=== PATIENT | female | born 1945 | race Caucasian/White ===

== ENCOUNTER 2023-08-14 15:36 | Emergency (ER) | payer MEDICARE, SELFPAY ==
[2023-08-14 16:02] VITALS: BP 160/81; PULSE 78; RESP 18; TEMP 36.7; O2SAT 100
--- NOTE | 2023-08-14 16:37 | ED.URI ---
HPI - URI/Sore Throat General Chief Complaint: Upper Respiratory Infection Stated Complaint: head congestion/cough Time Seen by Provider: 08/14/23 16:37 Source: patient and RN notes reviewed Mode of arrival: ambulatory Limitations: no limitations History of Present Illness HPI Narrative: 77-year-old female presented for complaint of sinus congestion, cough and chills. Onset 3 days. She took Mucinex and other ocfx-bdb-prhxxdu medication without significant improvement. She denies shortness of breath, wheezing, nausea, vomiting, diarrhea fever chills. MD elicited complaint: cough Related Data Home Medications Medication Instructions Recorded Confirmed sumatriptan succinate 100 mg tablet 100 mg PO PRN PRN migraines 08/14/23 08/14/23 Allergies Allergy/AdvReac Type Severity Reaction Status Date / Time No Known Allergies Allergy Verified 08/14/23 16:01 Review of Systems Review of Systems: Per HPI Exam Narrative: GENERAL: mildly ill-appearing, nontoxic no acute distress. EYES: PERRLA, conjunctivae clear ENT: Mucous membranes moist. TMs pearly cole with dull light reflex bilaterally; no tragal tenderness. Oropharynx erythematous without lesions or exudate, no drooling, no hoarseness, no trismus, uvula midline. NECK: Supple. No lymphadenopathy CHEST: Clear to auscultation, breath sounds equal. No wheezing, rhonchi, rales, or stridor. No respiratory distress, speaks in full sentences. HEART: Regular rate and rhythm. No murmur heard. SKIN: Warm, dry, no rash. NEURO: Alert and oriented x3. PSYCH: Normal mood and affect Course Course Emergency Course: Patient is aware of diagnosis, understands and agrees to treatment plan. Anticipatory guidance given. Patient agrees to follow-up as directed and is aware of reasons to seek care at the emergency department. Portions of this record may have been created with voice recognition software Level of Care: Express Care Visit Vital Signs Vital signs: Vital Signs Temperature 98.1 F 08/14/23 16:02 Pulse Rate 78 08/14/23 16:02 Respiratory Rate 18 08/14/23 16:02 Blood Pressure 160/81 H 08/14/23 16:02 Pulse Oximetry 100 08/14/23 16:02 Oxygen Delivery Room Air 08/14/23 16:02 Temperature 98.1 F 08/14/23 16:02 Pulse Rate 78 08/14/23 16:02 Respiratory Rate 18 08/14/23 16:02 Blood Pressure 160/81 H 08/14/23 16:02 Pulse Oximetry 100 08/14/23 16:02 Oxygen Delivery Room Air 08/14/23 16:02 reviewed MDM - URI/Sore Throat MDM Narrative Medical decision making narrative: negative flu and COVID. Results reviewed with patient. URI Symptoms present x3 days. Discussed physical exam findings. Advised supportive measures and signs/symptoms to go to the ER. Pt is appropriate for outpt treatment and f/u. Differential Diagnosis Differential diagnosis: Likely upper respiratory infection, sinusitis, viral infection and influenza Lab Data Labs: Influenza A Screen Negative Reference Range: Negative Influenza B Screen Negative Reference Range: Negative Discharge Plan Discharge Clinical Impression: Upper respiratory infection Patient Disposition: Home, Self-Care Condition: Stable Instructions: Antibiotic Form, Upper Respiratory Infection (ED) Additional Instructions: Your blood pressure reading was elevated (above 120/80) please follow-up with your primary care provider for further evaluation and management. If you develop worsening Blood Pressure symptoms, (headache, vision changes, dizziness, vomiting, chest pain, etc) go to the ER. Call 911. Flu and COVID negative. Recommend Flonase spray and Zyrtec (or Claritin/Flor) over the counter Cough syrup may cause drowsiness; avoid driving or take it at night time. Recommend Coricidin HBP if you have hypertension Tylenol 1000mg every 8
== END 2023-08-14 16:44 | disposition home or self-care (01) ==
PROVIDERS: Emergency Provider Nurse Practitioner Family
DX: J06.9 Acute upper respiratory infection, unspecified (principal); Z20.822 Contact with and (suspected) exposure to COVID-19
CPT/HCPCS: 87426; 87804; 99213; G0463

== ENCOUNTER 2024-12-22 19:09 | Emergency (ER) | payer MEDICARE, SELFPAY ==
--- OUTSIDE RECORDS SUMMARY | 2024-12-22 19:12 | XMS_ITS | Referral Summary ---
Author Organization [address] Address [address] [place] [address] Care Team Providers Care Supervisor Polishing Name Role Phone Gallito Santana MD Primary Care Provider [phone] Allergies No known active allergies Medications SUMAtriptan (IMITREX) 100 mg tabletIndicatio ns:Migraine Take 100 mg by mouth once as needed for migraine Active Active Problems Problem Noted Date Diagnosed Date Urinary tract infection 02/01/2009 Overview (09/11/2017): Description: Recurrent - Onset 06/09 - present Dysuria 02/01/2009 Social History Tobacco Use Types Packs/Day Years Used Date Smoking Tobacco: Former Comments Unknown Sex and Gender Information Value Date Recorded Sex Assigned at Not on file 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 Gender Identity Not on file Sexual Orientation Not on file Last Filed Vital Signs Vital Sign Reading Time Taken Comments Blood Pressure 122/80 01/14/2021 4:04 PM CDT Pulse 83 01/14/2021 4:04 PM CDT Temperature 37.3 C (99.1 F) 01/14/2021 4:04 PM CDT Respiratory Rate 18 01/14/2021 4:04 PM CDT Oxygen Saturation 98% 01/14/2021 4:04 PM CDT Inhaled Oxygen Concentration - - Weight 68.5 kg (151 lb) 01/14/2021 4:04 PM CDT Height 160 cm (5' 3) 01/14/2021 4:04 PM CDT Body Mass Index 26.75 01/14/2021 4:04 PM CDT Plan of Treatment Not on file Insurance AET MEDICARE AETNA MEDICARE GOLD Care Teams Supervisor Polishing Relationship Specialty Start Date End Date Gallito Santana MD PCP - General Internal Medicine 01/14/21
--- OUTSIDE RECORDS SUMMARY | 2024-12-22 19:12 | XMS_ITS | Clinical Summary ---
Author Organization [facility] Address [address] [place] [address] Care Team Providers Care Oxygen Furnace Operator Name Role Phone Wesley Dawkins Primary Care Provider Unavailabl e Source Comments [facility],non-owned Affiliates and Associated Physician Practices is amultiple site organization consisting of ambulatory clinics and hospital sitesin [place] and [place]. This disclosure is being madepursuant to the Care Everywhere program and may not contain all information available regarding this patient. Last updated 18.[facility] Allergies No known active allergies Medications * Be aware that medications may not be up to date on this document. Alwaysverify current medications with the patient. ibuprofen (MOTRIN) 800 MG tablet Take 1 Tab by mouth 3 times daily as needed for Pain. 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 Gender Identity Not on file Sexual Orientation Not on file Last Filed Vital Signs Vital Sign Reading Time Taken Comments Blood Pressure 154/78 04/01/2013 4:03 PM CDT Pulse 78 04/01/2013 4:03 PM CDT Temperature 36.8 C (98.2 F) 04/01/2013 1:24 PM CDT Respiratory Rate 18 04/01/2013 4:03 PM CDT Oxygen Saturation 98% 04/01/2013 4:03 PM CDT Inhaled Oxygen Concentration - - Weight 74.8 kg (165 lb) 04/01/2013 1:24 PM CDT Height 162.6 cm (5' 4) 04/01/2013 1:24 PM CDT Body Mass Index 28.32 04/01/2013 1:24 PM CDT Plan of Treatment Health Maintenance Due Date Last Done Comments BONE DENSITY TESTING 1945 HEPATITIS C SCREENING 12/06/1965 DTAP/TDAP/TD VACCINES (1 - Tdap) 12/10/1966 PNEUMOCOCCAL VACCINE 50+ (1 of 1 - PCV) 12/10/1997 ZOSTER VACCINE (1 of 2) 12/10/1997 Respiratory Syncytial Virus (RSV) Vaccine Pt: or over 60 yrs (1 - 1-dose 75+ series) 12/10/2022 COVID-19 VACCINE ( - 2023-2 5 season) 2024 DEPRESSION SCREENING 06/01/2024 INFLUENZA VACCINE (#1) 2025 HEPATITIS B VACCINE Aged Out No longe r eligible based on patient's age to complete this topic HIB VACCINE Aged Out No longer eligi ble based on patient's age to complete this topic HPV VACCINE Aged Out No longer eligi ble based on patient's age to complete this topic MENINGOCOCCAL (Group B) VACC INE SHARED DECISION-MAKING Aged Out No longer eligibl e based on patient's age to complete this topic MENINGOCOCCAL GROUPS A/C/Y/W VACCINE Aged Out No longer eligible b ased on patient's age to complete this topic Insurance [facility] COMMERCIAL GENERIC COMMERCIAL GENERIC [employer] Member Subscriber Plan / Payer (Ef fective for All Dates) Name:Selin Carlson Britney Relation to Subscriber:Self Name:Selin Carlson Britney Payer ID:Not on file Group ID:Not on file Type:Third [employer] [id number] Address: [address] [address] [place] [address] [employer] Care Teams Oxygen Furnace Operator Relationship Specialty Start Date End Date Wesley Dawkins PCP - General Internal Medicine 04/01/13
--- OUTSIDE RECORDS SUMMARY | 2024-12-22 19:12 | XMS_ITS | Continuity of Care Document ---
Author Organization [facility] Address [address] [place] [address] Phone Care Team Providers Care Vamp Seamer Name Role Phone Ronit Farmer MD Unavailable Unavailable Allergies, Adverse Reactions, Alerts Substance Reaction Status Criticality No Known allergies Medications Medication Instructions Dosage Effective Dates (start - stop) Status Comments IMITREX (unknown strength) Not Available - Active Procedures Procedure Date POSTOP FOLLOW-UP VISIT POSTOP FOLLOW-UP VISIT POSTOP FOLLOW-UP VISIT [facility] Advance Directives Directive Yes / No Effective Date File Name Resuscitation Not Answered N/A N/A Life Support Not Answered N/A N/A Intubation Not Answered N/A N/A Antibiotics Not Answered N/A N/A IV Fluid Support Not Answered N/A N/A Tube Feed Not Answered N/A N/A Other Directive N/A N/A WARNING:The information contained in this section is historical and is provided for information only and does not constitute a legal document or any assurance that the information is still accurate. Please verify the information with the ron of the legal document before using it for clinical purposes. Encounters Encounter Description Practice Location Reason(s) For Visit Diagnoses Date Provider Providers Copied on Encounter [facility], [address], [place], [address], [phone] [facility] Trigger fingerCarpal Tunnel Syndrome 4 Marleny Cottrell. [address] [place], [place], [id number] . tel: [phone] [facility], [address] [address], [place], [address], [place] tel:[phone] [facility] Carpal Tunnel SyndromeTrigger finger 3 Marleny Ronit. [address], [place], [place], [id number] . tel: [phone] [facility], [address] [address], [place], [address], [place] tel:[phone] [facility] Trigger fingerCarpal Tunnel Syndrome 3 Marleny Ronit. [address] [facility], [place], [place], [id number] . tel: [phone] [facility], [address] [place] [address], [place], [address], [place] tel:[phone] [facility] Carpal Tunnel SyndromeTrigger finger 3 Marleny Ronit. [address], [place], [place], [id number] . tel: [phone] [facility], [address] [place] [address], [address], [place] tel:[phone] [facility] Trigger fingerCarpal Tunnel Syndrome 3 Marleny Ronit. [address] [place], [place], [id number] . tel: [phone] OFFICE/OUTPA TIENT VISIT [facility], [address] [place] [address], [address], [place] tel:[phone] [facility] Carpal Tunnel SyndromeTrigger finger Mar- 3 Marleny Ronit. [address] [place], [place], [id number] . tel: [phone] OFFICE/OUTPA TIENT VISIT [facility], [address] [place] [address], [address], [place] tel:[phone] [facility] Carpal Tunnel Syndrome Mar- 3 Marleny Ronit. [address] [place], [place], [id number] . tel: [phone] Family History Family Member Type Diagnosis Age At Onset No Information Payers Payer name Insurance type Covered constitution party ID Authoriza tion(s) No Information Social History Type Description Quantity Date Captured Comments Alcohol Use Details Unknown Caffeine Use Details Unknown Tobacco Use Status No Information Smoking Status Current every day smoker 2013 Sex Female Chief Complaint And Reason For Visit No Information Reason For Referral Reason For Referral No Information Plan Of Treatment Date Type Action Status Referral Ordered: MUSC TEST DONE W/N TEST COMP (EMG/NCS) Bilateral Appointment date/timeframe: 03/23/2013 ordered History Of Present Illness Encounter Date Complaint History Of Prese nt Illness No Information Functional Status Date Functional Assessmen t No Information Instructions Date Instruction Additional Infor mation Patient directed active and pass rufus ROM Patient directed active and pass rufus ROM Patient directed active and pass rufus ROM Assessments Type Assessment Date No Information Patient Care Teams Name Effective Dates (start - stop) Status Members No Information
--- OUTSIDE RECORDS SUMMARY | 2024-12-22 19:12 | XMS_ITS | Clinical Summary ---
Author Organization [facility] Administrative Offices Address [address] [place] [address] Care Team Providers Care Bear Keeper Name Role Phone Gallito Santana MD Primary Care Provider [phone] Allergies No known active allergies Medications SUMAtriptan (IMITREX) 100 mg tabletIndicatio ns:Breast cancer screening by mammogram TAKE 1 TABLET (100 MG) BY MOUTH DIRECTED. MAY REPEAT IN 2 HOURS MAX DOSE 200MG IN 24 HOURS 27 Tablet 4 4 Active amLODIPine (NORVASC) 5 mg tablet TAKE 1 TABLET BY MOUTH EVERY DAY 100 Tablet 5 Active amLODIPine (NORVASC) 5 mg tablet Take 1 Tablet (5 mg) by mouth daily. 100 Tablet 3 4 11/25/19 25 Discontinued Active Problems Problem Noted Date Diagnosed Date Pure hypercholesterolemia 03/03/2020 Benign hypertension with CKD (chronic kidney disease) stage III 02/13/2020 Assessment & Plan (02/13/2020 12:19 AM CDT): Stable. Continue current management. Chronic migraine without aura Encounters Date Type Department Care Team Description 12/14/2024 External Device Data STL ABSTRACTION Provider, Abstract 12/14/2024 External Device Data STL ABSTRACTION Provider, Abstract 11/24/2024 Refill [facility] [place] [address] [facility] [address] [place] [address] Ann Romero ANP 11/22/2024 External Device Data STL ABSTRACTION Provider, Abstract 11/22/2024 External Device Data ST[facility] ABSTRACTION Provider, Abstract 11/22/2024 External Device Data ST[place] ABSTRACTION Provider, Abstract 11/15/2024 External Device Data ST[facility] ABSTRACTION Provider, Abstract 10/20/2024 External Device Data ST[place] ABSTRACTION Provider, Abstract 10/19/2024 External Device Data STL ABSTRACTION Provider, Abstract 10/18/2024 External Device Data STL ABSTRACTION Provider, Abstract from Last 3 Months Immunizations Immunization Administration Dates Next Due (PNEUMOVAX 23)(50 YRS UP) PN EUMOCOCCAL POLYSACCHARIDE (PPV23) 0.5 ML, IM 11/12/2020 (PREVNAR 13)(6 WKS UP) PNEUM OCOCCAL CONJUGATE (PCV13) 0.5 ML, IM 11/16/2019 INFLUENZA VACCINE HIGH DOSE QUADRIVALENT 65 YR U P PF IM 04/11/2022 Family History Medical History Relation Name Comments Prostate Cancer Father Heart Disease Mother Hypertension Mother Relation Name Status Comments Father Mother Social History Tobacco Use Types Packs/Day Years Used Date Smoking Tobacco: Former Cigarettes Smokeless Tobacco: Former Tobacco Cessation:Counseling Given: Not Answered Alcohol Use Standard Drinks/Week Comments Not Currently 0 (1 standard drink = 0.6 oz pur e alcohol) Comments No Sex and Gender Information Value Date Recorded Sex Assigned at Not on file 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 Gender Identity Not on file Sexual Orientation Not on file Last Filed Vital Signs Vital Sign Reading Time Taken Comments Blood Pressure 118/68 01/14/2024 2:13 PM CDT Pulse 67 01/14/2024 2:13 PM CDT Temperature 36.1 C (97 F) 01/14/2024 2:13 PM CDT Respiratory Rate - - Oxygen Saturation 98% 01/14/2024 2:13 PM CDT Inhaled Oxygen Concentration - - Weight 71.2 kg (157 lb) 01/14/2024 2:13 PM CDT Height 158.8 cm (5' 2.5) 01/14/2024 2:13 PM CDT Body Mass Index 28.26 01/14/2024 2:13 PM CDT Plan of Treatment Upcoming Encounters Date Type Department Care Team (Late st Contact Info) Description 01/23/2025 1:30 PM CDT Office Visit [facility] [place] [address] [facility] [address] [place] [id number] Ann Romero, ANP [id number] [place] [address] Health Maintenance Due Date Last Done Comments DTAP/TDAP/TD VACCINES (1 - Tdap) 12/10/1966 ZOSTER VACCINE (1 of 2) 12/10/1997 RSV VACCINE (60+ or ) (1 - 1-dose 75+ series) 12/10/2022 Medicare Advantage ([place]) Preventative Visit/Annual Wellness Visit 06/01/2024 01/14/2024, 04/11/2022, 11/12/2020, Additional history exists INFLUENZA VACCINE (#1) 2024 04/11/2022 OSTEOPOROSIS SCREENING 03/16/2029 03/16/2024 PNEUMOCOCCAL VACCINE 50+ YEARS Completed 11/12/2020 , 11/16/2019 Colorectal Cancer Screening Discontinued FIT-DNA Q 3 years Discontinued 11/24/2020 COLORECTAL SCREENING Discontinued FIT/FOBT Q 1 year Discontinued Flex Sig/CT Colonography Q 5 years Discontinued Procedures Procedure Name Priority Date/Time Associated Diagnosis Comments XR DEXA BONE DENSITY AXIAL 1 OR MORE SITES Routine 03/16/2024 3:27 PM CDT Medicare annual wellness visit, subsequent Screening for osteoporosis Age-related osteoporosis without current pathological fracture COLON CANCER SCREEN, STOOL DNA Routine 11/24/2020 1:00 PM CDT Screening for colon cancer from Last 3 Months or Most Recently Relevant to Health Maintenance Results * XR DEXA BONE DENSITY AXIAL 1 OR MORE SITES (03/16/2024 3:27 PM CDT) Anatomical Region Laterality Modality Digital Radiogra phy 03/16/2024 3:27 PM CDT Impressions 03/16/2024 5:23 PM CDT IMPRESSION: Osteopenia. Lumbar Spine: T-score: 0.7 Left Femoral Neck: T-score: -1.2 Left Total Femur: T-score: -0.3 Right Femoral Neck: T-score: -1.4 Right Total Femur: T-score: -0.6 FRAX FRACTURE RISK ASSESSMENT: (Only valid Between 40-89 Years Of Age) Risk factors: Family history. Tobacco use. 10-Year probability of fracture Major osteoporotic fracture: 23.2 % Defined as fracture of the spine, hip or shoulder. Hip fracture: 15.2 % Comparison population: [place], Race: White This is a summary page. Please refer to the complete detailed report found in: Imaging Section of the [facility] EMR. Definitions: Normal: T-score above -1.0 Osteopenia T-score less than -1.0 and above -2.5 Osteoporosis: T-score <= -2.5 Note: Clinical Osteoporosis may be based on other factors besides DXA calculated BMD. OTher factors include and are not limited to fragility fractures, subclinical compression fractures,osteopenia and elevated FRAX Scores. A major osteoporotic fracture is defined as a fracture of the spine, forearm, hip or shoulder. Follow-up Recommendations: Patients without high risk factors for osteoporosis T-score -1.0 to -1.5 - Consider repeat BMD in 5-10 years T-score -1.5 to - 2.0 - Consider repeat BMD in 3-5 years T-score -2.0 to - 2.5 - Consider repeat BMD every 2 years Patients on treatment for osteoporosis 1-2 years after initiation of treatment and every 2 years thereafter [address] Aman Lugo MD DICTATION LOCATION: Location 4 [facility] 03/16/2024 5:23 PM CDT EXAMINATION: BONE DENSITY STUDY (DXA) DATE: 03/16/2024 3:27 PM HISTORY: 78 years Female. Postmenopausal. Screening for osteoporosis. PROCEDURE: Planar images of the lumbar spine and hip(s). [employer] DEXA scanner for bone mineral density determination (BMD). FINDINGS: Lumbar Spine (L1-L4): T-score: 0.7 1.259 g/sq cm Left Femoral Neck: T-score: -1.2 0.876 g/sq cm Left Total Femur: T-score: -0.3 Right Femoral Neck: T-score: -1.4 0.837 g/sq cm Right Total Femur: T-score: -0.6 TECHNICAL ISSUES: None. Procedure Note Aman Lugo MD - 03/16/2024 EXAMINATION: BONE DENSITY STUDY (DXA) DATE: 03/16/2024 3:27 PM HISTORY: 78 years Female. Postmenopausal. Screening for osteoporosis. PROCEDURE: Planar images of the lumbar spine and hip(s). [employer] DEXA scanner for bone mineral density determination (BMD). FINDINGS: Lumbar Spine (L1-L4): T-score: 0.7 1.259 g/sq cm Left Femoral Neck: T-score: -1.2 0.876 g/sq cm Left Total Femur: T-score: -0.3 Right Femoral Neck: T-score: -1.4 0.837 g/sq cm Right Total Femur: T-score: -0.6 TECHNICAL ISSUES: None. IMPRESSION: Osteopenia. Lumbar Spine: T-score: 0.7 Left Femoral Neck: T-score: -1.2 Left Total Femur: T-score: -0.3 Right Femoral Neck: T-score: -1.4 Right Total Femur: T-score: -0.6 FRAX FRACTURE RISK ASSESSMENT: (Only valid Between 40-89 Years Of Age) Risk factors: Family history. Tobacco use. 10-Year probability of fracture Major osteoporotic fracture: 23.2 % Defined as fracture of the spine, hip or shoulder. Hip fracture: 15.2 % Comparison population: [place], Race: White This is a summary page. Please refer to the complete detailed report found in: Imaging Section of the [facility] EMR. Definitions: Normal: T-score above -1.0 Osteopenia T-score less than -1.0 and above -2.5 Osteoporosis: T-score <= -2.5 Note: Clinical Osteoporosis may be based on other factors besides DXA calculated BMD. OTher factors include and are not limited to fragility fractures, subclinical compression fractures,osteopenia and elevated FRAX Scores. A major osteoporotic fracture is defined as a fracture of the spine, forearm, hip or shoulder. Follow-up Recommendations: Patients without high risk factors for osteoporosis T-score -1.0 to -1.5 - Consider repeat BMD in 5-10 years T-score -1.5 to - 2.0 - Consider repeat BMD in 3-5 years T-score -2.0 to - 2.5 - Consider repeat BMD every 2 years Patients on treatment for osteoporosis 1-2 years after initiation of treatment and every 2 years thereafter D[address] by Dr. Aman Lugo MD DICTATION LOCATION: Location 4 [facility] Final Result * COLON CANCER SCREEN, STOOL DNA (11/24/2020 1:00 PM CDT) COLOGUARD RESULT Negative Negative [facility] Comment: NEGATIVE TEST RESULT. A negative Cologuard result indicates a low likelihood that a colorectal cancer (CRC) or advanced adenoma (adenomatous polyps with more advanced pre-malignant features) is present. The chance that a person with a negative Cologuard test has a colorectal cancer is less than 1 in 1500 (negative predictive value >99.9%) or has an advanced adenoma is less than 5.3% (negative predictive value 94.7%). These data are based on a prospective cross-sectional study of 10,000 individuals at average risk for colorectal cancer who were screened with both Cologuard and colonoscopy. (Roxi Brunner al, N Engl J Med 2014;370(14):0185-2091) The normal value (reference range) for this assay is negative. COLOGUARD RE-SCREENING RECOMMENDATION: Periodic colorectal cancer screening is an important part of preventive healthcare for asymptomatic individuals at average risk for colorectal cancer. Following a negative Cologuard result, the [place] Cancer Society and U.S. Multi-Society Task Force screening guidelines recommend a Cologuard re-screening interval of 3 years. References: [place] [employer] Society Guideline for Colorectal Cancer Screening: https://www.cancer.org/cancer/pxjkj-jzxcob-qdwpkn/ganqmrqkp-jkscdzmmo-cmtgjwd/ac s-rec ommendations.html.; Escobar DK, Maria D LUONG, Garcia MancillaK, Colorectal Cancer Screening: Recommendations for Physicians and Patients from the U.S. Multi-Society Task Force on Colorectal Cancer Screening , Am J Gastroenterology 2017; 112:9296-3819. TEST DESCRIPTION: Composite algorithmic analysis of stool DNA-biomarkers with hemoglobin immunoassay. Quantitative values of individual biomarkers are not reportable and are not associated with individual biomarker result reference ranges. Cologuard is intended for colorectal cancer screening of adults of either sex, 45 years or older, who are at average-risk for colorectal cancer (CRC). Cologuard has been approved for use by the U.S. FDA. The performance of Cologuard was established in a cross sectional study of average-risk adults aged 50-84. Cologuard performance in patients ages 45 to 49 years was estimated by sub-group analysis of near-age groups. Colonoscopies performed for a positive result may find as the most clinically significant lesion: colorectal cancer [4.0%], advanced adenoma (including sessile serrated polyps greater than or equal to 1cm diameter) [20%] or non- advanced adenoma [31%]; or no colorectal neoplasia [45%]. These estimates are derived from a prospective cross-sectional screening study of 10,000 individuals at average risk for colorectal cancer who were screened with both Cologuard and colonoscopy. (Roxi Macias et al, N Engl J Med 2014;370(14):3710-9587.) Cologuard may produce a false negative or false positive result (no colorectal cancer or precancerous polyp present at colonoscopy follow up). A negative Cologuard test result does not guarantee the absence of CRC or advanced adenoma (pre-cancer). The current Cologuard screening interval is every 3 years. ([place] Cancer Society and U.S. Multi-Society Task Force). Cologuard performance data in a 10,000 patient pivotal study using colonoscopy as the reference method can be accessed at the following location: www.[employer]/results. Additional description of the Cologuard test process, warnings and precautions can be found at www.cologuard.com. Stool STOOL SPECIMEN / Unknown 11/24/2020 1:00 PM CDT 11/26/2020 1:14 AM CDT us Gallito Santana MD BODY FLUIDS AND STOOLS Fi nal Result [facility] CLIA # [id number] [address] , [address] [place] [address] from Last 3 Months or Most Recently Relevant to Health Maintenance Insurance AETNA O MCR Care Teams Bear Keeper Relationship Specialty Start Date End Date Gallito Santana MD [address], [facility] [address] [place] [phone] PCP - General Internal Medicine 11/16/19
--- OUTSIDE RECORDS SUMMARY | 2024-12-22 19:12 | XMS_ITS | Encounter Summary ---
Author Organization [facility] Address 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 Gender Identity Not on file Sexual Orientation Not on file documented as of this encounter Plan of Treatment Upcoming Encounters Date Type Department Care Team (Late st Contact Info) Description 01/23/2025 1:30 PM CDT Office Visit [facility] Primary Care [place] [address] [facility] [address] [place] [address] Ann Romero, ANP [address] [facility] [address] [place] [address] documented as of this encounter Visit Diagnoses Diagnosis Sprain of neck- Primary documented in this encounter Care Teams Appeals Court Associate Justice Relationship Specialty Start Date End Date Gallito Santana MD [address] [facility] [address] [place] [address] PCP - General Internal Medicine 11/16/19 documented as of this encounter
--- OUTSIDE RECORDS SUMMARY | 2024-12-22 19:12 | XMS_ITS | Clinical Summary ---
Author Organization [facility] Address [address] [place] [address] Phone Care Team Providers Care Account Services Specialist Name Role Phone Gallito Santana MD Primary Care Provider [phone] Allergies No known active allergies Medications HYDROcodone-uriel taminophen (NORCO) 5-325 MG TabletIndicatio ns:Closed displaced transverse fracture of shaft of left ulna, initial encounter Take 1-2 Tablets by mouth every 4 hours as needed for Moderate or more severe pain. 20 Tablet 2 Active naloxone HCl (Narcan) 4 MG/0.1ML Liquid 1 [place] by Nasal route as needed (opioid overdose). administer for symptoms of overdose (severe sleepiness, breathing problems, not responsive). Call 911. May use additional dose to repeat 1 spray intranasally in 2-3 minutes if needed. 2 Each 2 Active amLODIPine (NORVASC) 5 MG Tablet Take 1 Tablet by mouth daily. 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 Gender Identity Not on file Sexual Orientation Not on file Last Filed Vital Signs Vital Sign Reading Time Taken Comments Blood Pressure 174/86 09/17/2023 8:30 PM CDT Pulse 65 09/17/2023 8:30 PM CDT Temperature 36.8 C (98.2 F) 09/17/2023 5:41 PM CDT Respiratory Rate 23 09/17/2023 8:00 PM CDT Oxygen Saturation 96% 09/17/2023 8:30 PM CDT Inhaled Oxygen Concentration - - Weight 77.1 kg (170 lb) 09/17/2023 5:41 PM CDT Height 158.8 cm (5' 2.5) 09/17/2023 5:41 PM CDT Body Mass Index 30.6 09/17/2023 5:41 PM CDT Plan of Treatment Health Maintenance Due Date Last Done Comments DEXA Bone Density 1945 Hepatitis C Virus (HCV) Screening 1945 TdaP Immunization 1945 Zoster Immunization (1 of 2) 12/10/1997 Respiratory Syncytial Virus (RSV) Immunization (Adult) (1 - 1-dose 75+ series) 12/10/2022 SARS-COV-2 Immunization ( season) 2024 12/15/2020, 11/24/2020 Influenza Immunization (#1) 01/30/202504/01, 04/18/2020, 03/22/2019, Additional history exists Pneumococcal Immunization (50+ years) Completed 11/12/2020, 11/16/2019 Hepatitis B Immunization Aged Out No longer eligible based on patient's age to complete this topic Human Papillomavirus (HPV) Immunization Aged Out No longer eligible based on patient's age to complete this topic Meningococcal Immunization (ACWY) Aged Out No longer eligible based on patient's age to complete this topic Rotavirus Immunization Aged Out No lo nger eligible based on patient's age to complete this topic Insurance MEDICARE C AETNA IPA PA MEDPAY PA TPL MEDICARE C AETNA Care Teams Account Services Specialist Relationship Specialty Start Date End Date Gallito Santana MD [address], [facility] [address] [place] [address] PCP - General Adult Medicine 05/20/22
--- OUTSIDE RECORDS SUMMARY | 2024-12-22 19:12 | XMS_ITS | Clinical Summary ---
Author Organization [address] Address [address] [place] [address] Care Team Providers Care Community Health Agent Name Role Phone Gallito Santana MD Primary Care Provider [phone] Allergies No known active allergies Medications SUMAtriptan (IMITREX) 100 mg tabletIndicatio ns:Migraine Take 100 mg by mouth once as needed for migraine Active Active Problems Problem Noted Date Diagnosed Date Urinary tract infection 02/01/2009 Overview (09/11/2017): Description: Recurrent - Onset 06/09 - present Dysuria 02/01/2009 Surgical History Surgery Date Site/Laterality Comments VT TOTAL ABDOMINAL HYSTERECT W/WO RMVL TUBE OVARY Hysterectomy - (Added by Conv) VT BREAST REDUCTION Breast Surgery Enlargement Procedure Elective - (Added by Conv) HYSTERECTOMY Medical History Medical History Date Comments Gastric ulcer without hemorr kourtney or perforation Gastric ulcer - (Added by Conv) Migraines Family History Medical History Relation Name Comments Cancer Father Heart disease Mother Relation Name Status Comments Father Mother Social History Tobacco Use Types Packs/Day Years Used Date Smoking Tobacco: Former Comments Unknown Sex and Gender Information Value Date Recorded Sex Assigned at Not on file 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
--- OUTSIDE RECORDS SUMMARY | 2024-12-22 19:14 | XMS_ITS | Continuity of Care Document ---
Author Organization [facility] Address [address] [place] [address] Phone Care Team Providers Care Special Order Jeweler Name Role Phone Ronit Farmer MD Unavailable Unavailable Allergies, Adverse Reactions, Alerts Substance Reaction Status Criticality No Known allergies Medications Medication Instructions Dosage Effective Dates (start - stop) Status Comments IMITREX (unknown strength) Not Available - Active Procedures Procedure Date POSTOP FOLLOW-UP VISIT POSTOP FOLLOW-UP VISIT POSTOP FOLLOW-UP VISIT OFFICE/OUTPATIENT VISIT [facility] OFFICE/OUTPATIENT VISIT [facility] Advance Directives Directive Yes / No Effective [...] Diagnoses Date Provider Providers Copied on Encounter [facility], [address], [place], [address], [phone] [facility] Trigger fingerCarpal Tunnel Syndrome 4 Marleny Cottrell. [address] [place], [place], [id number] . tel: [phone] [facility], [address] [address], [place], [address], [place] tel:[phone] [facility] Carpal Tunnel SyndromeTrigger finger 3 Marleny Ronit. [address] [facility], [place], [place], [id number] . tel: [phone] [facility], [address] [address], [place], [address], [place] tel:[phone] [facility] Trigger fingerCarpal Tunnel Syndrome 3 Marleny Ronit. [address] [facility], [place], [place], [id number] . tel: [phone] [facility], [address] [place] [address], [place], [address], [place] tel:[phone] [facility] Carpal Tunnel SyndromeTrigger finger 3 Marleny Ronit. [address] [facility], [place], [place], [id number] . tel: [phone] [facility], [address] [place] [address], [address], [place] tel:[phone] [facility] Trigger fingerCarpal Tunnel Syndrome 3 Marleny Ronit. [address] [place], [place], [id number] . tel: [phone] OFFICE/OUTPA TIENT VISIT [facility], [address] [place] [address], [address], [place] tel:[phone] [facility] Carpal Tunnel SyndromeTrigger finger Mar- 3 Marleny Ronit. [address] [place], [place], [id number] . tel: [phone] OFFICE/OUTPA TIENT VISIT [facility], [address] [place] [address], [address], [place] tel:[phone] [facility] Carpal Tunnel Syndrome Mar- 3 Marleny Ronit. [address] [place], [place], [id number] . tel: [phone] Family History Family Member Type Diagnosis Age [...]
[2024-12-22 19:16] VITALS: BP 157/80; PULSE 86; RESP 16; TEMP 36.9; O2SAT 97
--- NOTE | 2024-12-22 19:26 | ECG_ITS ---
Test Date: 2024-12-22 19:30:13 Measurements Intervals [place] Rate: 73 P: 66 SC: 152 QRS: -61 QRSD: 98 T: 63 QT: 382 QTc: 422 Interpretive Statements SINUS RHYTHM LEFT ANTERIOR FASCICULAR BLOCK [QRS AXIS <= -45, QR IN I, RS IN II] NONSPECIFIC ST T WAVE ABNORMALITIES No previous ECG available for comparison Electronically Signed On 12-23-2024 16:09:59 CDT by Brett Butcher M.D.
--- NOTE | 2024-12-22 19:28 | ED.EXTPRO ---
HPI - Extremity Problem General Chief complaint: Extremity Injury, Upper Stated complaint: Right Arm /Shoulder/Back /Neck Pain Time Seen by Provider: 12/22/24 19:15 Source: patient and RN notes reviewed Mode of arrival: ambulatory Limitations: no limitations History of Present Illness HPI Narrative: 79-year-old female presents Express Care complaining of right shoulder, neck, and upper back pain for approximately 1 week. 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 Patient reports the pain starts in her right upper back radiates into her neck to her elbow. Patient reports the pain is worse with certain movements of her right shoulder and arm. Patient also reports today she had some midsternal chest pain it lasted about 5-10 minutes and then subsided on its own. Patient denies doing anything in particular when the chest pain started reports as a achy sensation. Patient denies any current chest pain. Patient denies any cardiac history was a history of hypertension is a smoker. Patient reports the pain 10/10 in her back. Patient has been taking Tylenol and ibuprofen without any relief. Related Data Home Medications ?Medication ?Instructions ?Recorded ?Confirmed ?Last Taken ?Type sumatriptan succinate 100 mg tablet 100 mg PO PRN PRN migraines 08/14/23 08/14/23 Unknown History amlodipine 5 mg tablet mg 12/22/24 Unknown History Allergies Allergy/AdvReac Type Severity Reaction Status Date / Time No Known Allergies Allergy Verified 12/22/24 19:19 Review of Systems Review of Systems: CONSTITUTIONAL: Denies fever, chills, or sweats. EYES: Denies visual changes, redness, or discharge. ENT: Denies rhinorrhea, congestion, sore throat, or otalgia. CARDIOVASCULAR: Positive for chest pain. Negative for dizziness, lightheadedness, palpitations, or edema. RESPIRATORY: Denies cough or dyspnea. GASTROINTESTINAL: Denies abdominal pain, nausea, vomiting, or diarrhea. GENITOURINARY: Denies dysuria or hematuria. SKIN: Denies rash or itching. MUSCULOSKELETAL: Denies joint pain, or myalgia. Positive for back pain, neck pain, shoulder pain. NEUROLOGIC: Denies headache, numbness, or weakness. PSYCHIATRIC: Denies anxiety or depression. All other systems reviewed are negative, except as documented in HPI. PMFSH Comments At the time of my signature, I reviewed and agree with the nursing past medical, surgical, social, and family history. There is no relevant family history pertinent to the patient complaint. Exam Narrative: GENERAL: This is a well-nourished, well-developed adult, in no apparent distress. They are non ill-appearing, nontoxic appearing. HEAD: normocephalic, atraumatic. EYES: Sclera clear/white. Conjunctiva normal. Vision is grossly intact. Extraocular movements intact EARS: External ears normal,Hearing grossly intact. NOSE: External nose normal THROAT: Mucous membranes moist, NECK: Neck supple, non-tender without lymphadenopathy, masses or thyromegaly. No cervical point tenderness, crepitus, or step-offs. CARDIOVASCULAR: Regular rate and rhythm without murmurs, gallops, or rubs. RESPIRATORY: Clear to auscultation. Breath sounds equal bilaterally. No wheezes, rales, or rhonchi. SKIN: warm, Dry, intact with no suspicious lesions or rash, good texture and turgor. NEURO: awake, alert, and oriented to person, place and time. There were no obvious focal neurologic abnormalities. EXTREMITIES: Right shoulder: No obvious deformity, bruising, swelling, redness, or injury. There is tenderness through full range of motion of shoulder. No bony tenderness. Right radial pulse 2 +and palpable. Normal sensation. Neurovascular status intact. Patient is able to wiggle her fingers. BACK: Tenderness to palpation to right upper back. No thoracic or lumbar point tenderness, crepitus, or step-offs. No CVA tenderness. Course Course Emergency Course: Portions of this record may have been created with voice recognition software Level of Care: Express Care Visit Vital Signs Vital signs: Vital Signs Temperature 98.5 F 12/22/24 19:16 Pulse Rate 86 12/22/24 19:16 Respiratory Rate 16 12/22/24 19:16 Blood Pressure 157/80 H 12/22/24 19:16 Pulse Oximetry 97 12/22/24 19:16 Oxygen Delivery Room Air 12/22/24 19:16 Temperature 98.5 F 12/22/24 19:16 Pulse Rate 86 12/22/24 19:16 Respiratory Rate 16 12/22/24 19:16 Blood Pressure 157/80 H 12/22/24 19:16 Pulse Oximetry 97 12/22/24 19:16 Oxygen Delivery Room Air 12/22/24 19:16 Reviewed MDM - Extremity (Nontraumatic) MDM Narrative Medical decision making narrative: [place] heart score 2. Low suspicion for ACS or CAD. Patient is chest pain-free currently. EKG is sinus rhythm without ischemic findings. Patient's chest pain is atypical in presentation and does not appear to relate to the patient's back pain.Patient's back pain appears to be more muscle skeletal may or pinched nerve. Will prescribe patient muscle relaxers and a short course of Devine for pain. Offered patient ER transfer for symptoms and her episode of chest pain and she declined. Advised patient for close follow-up for back pain and to follow-up with her doctor about the chest pain that she had. Discussed physical exam findings. Advised supportive measures and signs/symptoms to go to the ER. Pt is appropriate for outpt treatment and f/u. Differential Diagnosis Differential diagnosis: Likely other (ACS, atypical chest pain, costochondritis, cervical spondylosis, thoracic sprain, arthritis, shoulder sprain, overuse injury) ECG Data EKG #1: ECG completion date: 12/22/24 ECG completion time: 19:30 Prior ECG tracings: not available for review EKG Interpretation: normal rate, no ST changes, normal QRS, RBBB (Incomplete), normal QT, NL axis and no acute changes Critical Care Time Critical Care Time Critical Care Time: No Discharge Plan Discharge Clinical Impression: Acute upper back pain, Atypical chest pain Patient Disposition: Home Condition: Stable Instructions: Back Pain (ED) Additional Instructions: Your EKG is negative for any signs of a heart attack. Please take Devine as directed. Take Baclofen as directed for muscle spasms. Do not drive or operate machinery while taking these medications as a main make you drowsy, do not take them together. You may take [id number] Motrin as needed for pain as well, follow-up and instructions on the bottle. Follow-up with PCP in 3-5 days. If you develops worsening chest pain, chest pain with exertion, shortness of breath, left arm pain, nausea, vomiting, severe back pain, or any other concerns please go to the ER immediately. Patient Language: Georgian Prescriptions: New hydrocodone-acetaminophen 5-325 mg tablet 1 tablet PO Q8H PRN (Reason: pain) Qty: 10 0RF baclofen 10 mg tablet 10 mg PO TID PRN (Reason: Spasms) Qty: 10 0RF No Action amlodipine 5 mg tablet sumatriptan succinate 100 mg tablet 100 mg PO PRN PRN (Reason: migraines) Follow-up/Referrals: PHYSICIAN NOT ON STAFF,NONSTAFF [Primary Care Provider] - Time of Disposition: 19:42
== END 2024-12-22 19:52 | disposition home or self-care (01) ==
DX: M54.6 Pain in thoracic spine (principal); R07.89 Other chest pain
CPT/HCPCS: 93005; 99213; G0463